=== PATIENT | female | born 1990 | race Caucasian/White ===

== ENCOUNTER 2024-11-16 10:19 | Emergency (ER) | payer OTHER ==
[2024-11-16 11:05] VITALS: BP 119/79; PULSE 108
== END 2024-11-16 11:40 | disposition home or self-care (01) ==
LOC: LB.ED 10:19
DX: S06.0X1A Concussion with loss of consciousness of 30 minutes or less, initial encounter (principal); S09.93XA Unspecified injury of face, initial encounter; F17.210 Nicotine dependence, cigarettes, uncomplicated; Z90.710 Acquired absence of both cervix and uterus; W01.198A Fall on same level from slipping, tripping and stumbling with subsequent striking against other object, initial encounter
CPT/HCPCS: 70450; 70486; 99283; 99284